=== PATIENT | male | born 1975 | race Caucasian/White ===

== ENCOUNTER 2018-04-10 22:38 | Emergency (ER) | payer OTHER ==
[~2018-04-10] VITALS: Ht 185.4 cm; Wt 65.8 kg
--- NOTE | 2018-04-10 22:43 | NUR ---
Patient is agressive, screaming at staff. Refusing staff assistance at this time. Patient encouraged to allow staff to assist him with EKG. Patient states " I will report you to the board, I will turn it up and get in your face". Patient proceeds to stand up and threaten staff stating " You can kiss my ass. I will do as I please". Code Hyman called @ [phone] on the patient. Patient continues to refuse care, screaming at staff. Threatening staff. supervisor opening and picking presence is requested at this time. Security is at bedside @ this time. Patient remains screaming and threatening staff. Patient refused ECG at this time.
[2018-04-10 23:20] LABS: BASOPHILS % (AUTO) 0.6 % (0.0-2.0); EOSINOPHILS # (AUTO) 0.1 K/uL (0.0-0.7); EOSINOPHILS % (AUTO) 1.5 % (0.0-7.0); HEMOGLOBIN 14.2 g/dL (12.5-16.3); LYMPHOCYTES % (AUTO) 45.6 % (20.5-51.5); MEAN CORPUSCULAR HEMOGLOBIN 31.4 uug (23.8-33.4); MEAN CORPUSCULAR HGB CONC 35 g/dL (32.5-36.3); MEAN CORPUSCULAR VOLUME 91.2 fL (73.0-96.2); MONOCYTES # (AUTO) 0.7 K/uL (2.0-10.0); MONOCYTES % (AUTO) 10.1 % (0.0-11.0); NEUTROPHILS # (AUTO) 2.7 K/uL (1.8-8.9); NEUTROPHILS % (AUTO) 42.2 % (38.5-71.5); PLATELET COUNT (AUTO) 232 K/uL (152-348); WHITE BLOOD COUNT (AUTO) 6.5 K/uL (3.6-10.2)
[2018-04-10 23:27] LABS: POTASSIUM 3.7 mmol/L (3.5-5.1)
[2018-04-10 23:43] LABS: BILIRUBIN,DIRECT 0.1 mg/dL (0.0-0.2); BILIRUBIN,TOTAL 0.3 mg/dL (0.2-1.0); TOTAL PROTEIN, SERUM 6.3 g/dL (6.4-8.2)
[2018-04-11] MEDS ORDERED: KETOROLAC TROMETHAMINE 15 MG INJ IVP ONE
[2018-04-11] MEDS ORDERED: KETOROLAC TROMETHAMINE 15 MG INJ ONE (00:04)
--- NOTE | 2018-04-11 01:55 | NUR ---
Xray at bedside.
--- NOTE | 2018-04-11 02:37 | NUR ---
Patient discharged to home in stable conditon. Written and verbal after care instructions given. Patient verbalizes understanding of instructions. Patient ambulated out of ER with steady gait, no acute signs of distress, VSS, all belongings taken, IV site discontinued.
[2018-04-11 02:39] VITALS: BP 98/55
== END 2018-04-11 02:39 | disposition home or self-care (01) ==
LOC: ER 22:40
DX: M94.0 Chondrocostal junction syndrome [Tietze] (principal); J45.909 Unspecified asthma, uncomplicated; F17.210 Nicotine dependence, cigarettes, uncomplicated; F12.10 Cannabis abuse, uncomplicated
CPT/HCPCS: 36415 ×2; 71045; 80048; 80076; 83880; 84484 ×2; 85025; 85379; 85730; 93005 ×2; 96374; 99284; J1885; 70030-TC; A4663

== ENCOUNTER 2018-08-22 21:10 | Emergency (ER) | payer OTHER ==
[~2018-08-22] VITALS: Ht 185.4 cm; Wt 83.9 kg
--- NOTE | 2018-08-22 21:30 | NUR ---
Dr. Ruffin at bedside for MSE.
--- NOTE | 2018-08-22 21:40 | NUR ---
Patient eloped from facility, stated he has an emergency at home. ER physician notified.
== END 2018-08-22 21:42 | disposition left against medical advice (07) ==
LOC: ER 21:10
DX: R53.1 Weakness (principal); M79.602 Pain in left arm; J45.909 Unspecified asthma, uncomplicated; F17.200 Nicotine dependence, unspecified, uncomplicated; F12.10 Cannabis abuse, uncomplicated
CPT/HCPCS: A4663

== ENCOUNTER 2018-09-17 13:51 | Emergency (ER) | payer OTHER ==
[~2018-09-17] VITALS: Ht 185.4 cm; Wt 83.9 kg
--- NOTE | 2018-09-17 14:08 | NUR ---
PT IS A/OX4, PRESENTS TO THE ER C/O L NECK PAIN. PT REPORTS HE HAS BEEN IN THIS ER RECENTLY W/ C/O L ARM PAIN BUT ELOPED FROM THE ER. PER PT'S REPORT, PT HAS BEEN HAVING L ARM PAIN X 3 WEEKS THAT IS NON-PROVOKED, THROBBING IN QUALITY, RADIATES UP AND DOWN THE L ARM INTO THE NECK, 8/10, CONSTANT. TODAY, THE L ARM PAIN WORSENED AND WAS RADIATING INTO HIS L NECK. PT STATES "LAST TIME I WAS HERE, I WAS TOLD I NEED A CT SCAN OF MY NECK". VSS. PT DENIES C/P, SOB, N/V/D, DIZZINESS, HEADACHE.
--- NOTE | 2018-09-17 14:13 | NUR ---
DONALDO BROWN AT BEDSIDE FOR MSE.
--- NOTE | 2018-09-17 14:28 | NUR ---
PATIENT STARTED SCREAMING AND THREATENING DOCTOR IN ROOM 02A. PATIENT SAID I DONT WANT ANY TEST TO BE DONE STEPHY BE DC AMA PER DR SCHREIBER.
--- NOTE | 2018-09-17 14:30 | NUR ---
PATIENT WAS TOLD BY SECURITY TO STAY IN THE ROOM. PATIENT REFUSED AND START WALKING TOWARDS DISHING MACHINE OPERATOR. PATIENT WAS AGIAN TOLD HE NEED TO STAY IN THE ROOM PATIENT START CONFRONTING DISHING MACHINE OPERATOR AND SAYING HE HAD HIS OWN HANDCUFFS IN HIS CAR.
--- NOTE | 2018-09-17 14:30 | NUR ---
Patient does not wish to proceed with medical care recommended by Dr. SCHREIBER. Patient given information related to possible complications, up to and including , which could occur as a result of leaving the hospital at this time. Patient verbalizes understanding of risks involved due to leaving against medical advice. Patient has signed AMA form.
--- NOTE | 2018-09-17 14:31 | NUR ---
PATIENT WAS ESCORTER OUT BY SECURITY. PATIENT WAS THREATENING SECURITY AND OTHER STAFF. [employer] WAS CALLED. PER [employer] WILL SEND UNIT.
== END 2018-09-17 14:31 | disposition left against medical advice (07) ==
LOC: ER 13:51
DX: M54.2 Cervicalgia (principal); M79.602 Pain in left arm; J45.909 Unspecified asthma, uncomplicated; F17.200 Nicotine dependence, unspecified, uncomplicated; F12.10 Cannabis abuse, uncomplicated
CPT/HCPCS: A4663